=== PATIENT | male | born 1950 | race African-American/Black ===

== ENCOUNTER 2019-11-26 21:08 | Inpatient (IN) | payer OTHER ==
[~2019-11-26] VITALS: Ht 180.3 cm; Wt 91.6 kg
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
[2019-11-26] MEDS ORDERED: NORVASC 2.5 MG2.5 M1 PO (21:23)
[2019-11-26] MEDS ORDERED: ASA81BEC PO (21:23)
[2019-11-26] MEDS ORDERED: HYDROCHLOROTHIA25 M2 PO (21:24)
[2019-11-26] MEDS ORDERED: COZAAR 25 MG TA25 M1 PO (21:24)
[2019-11-26 21:54] LABS: HEMATOCRIT 41.6 % (42.0-52.0); RDW 13.9 % (10.5-14.5); WBC 9.6 thou/uL (4.0-11.0)
[2019-11-26 21:55] LABS: ABSOLUTE NEUTROPHILS 5.2 thou/uL (1.4-8.2); BASOPHILS 0.7 % (0.0-2.0); EOSINOPHILS 1.2 % (0.0-3.0); HEMOGLOBIN 13.8 gm/dL (14.0-18.0); LYMPHOCYTES 32.2 % (24.0-44.0); MCHC 33.2 g/dL (28.0-37.0); MCV 84.3 fL (80.0-100.0); MONOCYTES 11.7 % (1.0-8.0); PLATELET COUNT 241 thou/uL (150-400); POLYS 54.2 % (36.0-66.0); RBC 4.93 mil/uL (4.50-6.00)
[2019-11-26 22:00] LABS: URINE BILIRUBIN NEGATIVE (Negative); URINE BLOOD NEGATIVE (Negative); URINE CLARITY CLEAR; URINE COLOR YELLOW; URINE GLUCOSE-RANDOM* NEGATIVE (Negative); URINE KETONES NEGATIVE (Negative); URINE LEUKOCYTES-REFLEX NEGATIVE (Negative); URINE NITRITE-REFLEX NEGATIVE (Negative); URINE PROTEIN (DIPSTICK) NEGATIVE (Negative); URINE SPECIFIC GRAVITY 1.015 (1.005-1.035); URINE UROBILINOGEN 0.2 E.U./dl (0.2-1.0)
[2019-11-26 22:01] LABS: CALCIUM 8.9 mg/dL (8.5-10.1); CREATININE 1.3 mg/dL (0.7-1.3); POTASSIUM 3.6 mmol/L (3.5-5.1)
[2019-11-26 22:10] LABS: APTT 27.1 Seconds (24.5-32.8); PROTIME 10.3 Seconds (9.3-11.4)
[2019-11-26 22:55] LABS: AMP/METHAMP Negative (Negative); BARBITURATES Negative (Negative); BENZODIAZEPINES Negative (Negative); COCAINE Negative (Negative); METHADONE Negative (Negative); OPIATES Negative (Negative); PCP Negative (Negative)
[2019-11-26 23:43] LABS: CHOLESTEROL 204 mg/dL (<200); HDL CHOLESTEROL 41 mg/dL (>40); LDL CHOLESTEROL 136 mg/dL (<100); TRIGLYCERIDE 138 mg/dL (<150); VLDL 28 mg/dL (<40)
[2019-11-26 23:44] LABS: SERUM ASSESSMENT Clear
[2019-11-26 23:53] VITALS: BP 136/64
[2019-11-27 00:58] VITALS: BP 158/93
[2019-11-27 05:08] VITALS: BP 126/77
[2019-11-27 05:45] LABS: HEMATOCRIT 40.4 % (42.0-52.0); HEMOGLOBIN 13.3 gm/dL (14.0-18.0); MCH 27.8 pg (26.0-34.0); MCHC 32.9 g/dL (28.0-37.0); MCV 84.6 fL (80.0-100.0); RBC 4.78 mil/uL (4.50-6.00); RDW 14.1 % (10.5-14.5); WBC 8.4 thou/uL (4.0-11.0)
[2019-11-27 06:09] LABS: CALCIUM 8.5 mg/dL (8.5-10.1); CREATININE 1.4 mg/dL (0.7-1.3); MAGNESIUM 2.1 mg/dL (1.8-2.4); POTASSIUM 3.5 mmol/L (3.5-5.1)
[2019-11-27 07:45] VITALS: BP 144/85
[2019-11-27 11:55] VITALS: BP 136/74
[2019-11-27 16:00] VITALS: BP 137/83
[2019-11-27 19:30] VITALS: BP 153/96
[2019-11-28] VITALS (7 sets, daily range): BP systolic 146–155; BP diastolic 78–102
[2019-11-28 05:52] LABS: GLYCOHEMOGLOBIN (HGB A1C) 6.1 % (4.8-5.6)
[2019-11-29] VITALS (7 sets, daily range): BP systolic 143–163; BP diastolic 84–99
--- NOTE | 2019-11-29 07:59 | EKG ---
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[facility] : 1950 Requested By: Hannah Alvarenga Order Number: [id number] MD: Toro Montoya Measurements Intervals Locust Rate: 81 P: 51 KS: 161 QRS: 14 QRSD: 78 T: 11 QT: 382 QTc: 444 Interpretive Statements Sinus rhythm Nonspecific ST and T wave abnormality Small inferior Q waves No previous ECG available for comparison Electronically Signed On 11-29-2019 7:58:47 CDT by Toro Montoya [email or web address] <ELECTRONICALLY SIGNED> By: Toro Montoya MD, FACC 11/29/19 0758 [id number] 2149 Toro Montoya MD, [facility] /EPI
--- NOTE | 2019-11-29 11:52 | 2DMMODE ---
[facility] [address] [place] [address] 2 D/M-MODE ECHOCARDIOGRAM Name: MARAH ESCOBAR Room #: 205-P ADM IN M.R.#: [id number] Admission: 11/26/19 Attend Phys: Lola Santoyo Discharge: Date of : 48 Report #: [id number] THIS REPORT FOR: cc: FAM - No family physician/PCP FAM - No family physician/PCP Dino Elizondo MD ~ APPROVED REPORT Study performed: 11/29/2019 09:20:08 EXAM: Comprehensive 2D, Doppler, and color-flow Echocardiogram Patient Location: Bedside Room #: 205 Status: routine BSA: 2.11 HR: 70 bpm BP: 145/90 mmHg Rhythm: NSR Other Information Study Quality: Good Indications CVA/TIA Hypertension/HDD Echo Enhancing Agent Indication: Rule out Shunt Agent(s) / Amount(s) Used: Agitated Saline 7 cc 2D Dimensions RVDd: 33.98 mm IVSd: 11.66 (7-11mm) LVOT Diam: 22.39 (18-24mm) LVDd: 39.66 mm PWd: 11.59 (7-11mm) Ascending Ao: 32.05 (22-36mm) LVDs: 23.36 (25-40mm) Aortic Root: 31.76 mm IVC: 14.00 mm Volumes Left Atrial Volume (Systole) Single Plane 4CH: 18.26 mL Single Plane 2CH: 26.29 mL LA ESV Index: 12.00 mL/m2 Aortic Valve [facility] [address] [place] [address] 2 D/M-MODE ECHOCARDIOGRAM Name: MARAH ESCOBAR Room #: 205-[facility] IN .R.#: [id number] Admission: 11/26/19 Attend Phys: Lola Sandoval May Discharge: Date of : 48 Report #: [id number] AoV Peak Nader.: 1.25 m/s AO Peak Gr.: 6.20 mmHg LVOT Max P.72 mmHg LVOT Max V: 1.20 m/s NEIL Vmax: 3.78 cm2 Mitral Valve E/A Ratio: 0.5 MV Decel. Time: 402.07 ms MV E Max Nader.: 0.49 m/s MV A Nader.: 0.91 m/s MV PHT: 116.60 ms IVRT: 170.70 ms Pulmonary Valve PV Peak Nader.: 0.74 m/s PV Peak Gr.: 2.19 mmHg Pulmonary Vein P Vein S: 0.54 m/s P Vein A: 0.41 m/s P Vein D: 0.23 m/s P Vein A Dur.: 115.3 msec P Vein S/D Ratio: 2.35 Tricuspid Valve TR Peak Nader.: 2.50 m/s TR Peak Gr.: 25.02 mmHg PA Pressure: 30.00 mmHg Left Ventricle The left ventricle is normal size. There is normal LV segmental wall motion. Mild concentric left ventricular hypertrophy. The left ventricular systolic function is normal. The left ventricular ejection fraction is within the normal range. LVEF is 60-65%. Grade I - abnormal relaxation pattern. Right Ventricle The right ventricle is normal size. The right ventricular systolic function is normal. Atria The left atrium size is normal. Atrial septal aneurysm is present with PFO. The right atrium size is normal. Aortic Valve The aortic valve is normal in structure. No aortic regurgitation is present. There is no aortic valvular stenosis. Mitral Valve [facility] [address] [employer] [place] [address] 2 D/M-MODE ECHOCARDIOGRAM Name: MARAH ESCOBAR Room #: 205-P ADM IN M.R.#: [id number] Admission: 11/26/19 Attend Phys: Lola Moore Discharge: Date of : 48 Report #: [id number] The mitral valve is normal in structure. Trace mitral regurgitation. No evidence of mitral valve stenosis. Tricuspid Valve The tricuspid valve is normal in structure. There is mild tricuspid regurgitation. Estimated PAP 30 mmHg. There is no pulmonary hypertension. Pulmonic Valve The pulmonary valve is normal in structure. There is no pulmonic valvular regurgitation. Great Vessels The aortic root is normal in size. IVC is normal in size and collapses >50% with inspiration. Pericardium There is no pericardial effusion. <Conclusion> The left ventricle is normal size. LVEF is 60-65%. The aortic valve is normal in structure. No aortic regurgitation is present. The mitral valve is normal in structure. Trace mitral regurgitation. The tricuspid valve is normal in structure. There is mild tricuspid regurgitation. Estimated PAP 30 mmHg. There is no pulmonary hypertension. The pulmonary valve is normal in structure. There is no pericardial effusion. Atrial septal aneurysm is present with PFO. <ELECTRONICALLY SIGNED> By: Dino Elizondo MD 11/29/19 1152 1152 1152 Dino Elizondo MD /INF
[2019-11-30 03:40] VITALS: BP 145/83
[2019-11-30 07:40] VITALS: BP 146/95
[2019-11-30] MEDS ORDERED: LIPITOR40 MG PO (08:09)
[2019-11-30] MEDS ORDERED: CLOPIDOGREL75 MG PO (08:09)
[2019-11-30 09:48] VITALS: BP 145/83
[2019-11-30 10:56] VITALS: BP 145/83
[2019-11-30 11:02] VITALS: BP 145/83
== END 2019-11-30 13:10 | disposition home health service (06) | DRG 65 ==
LOC: ER 21:08 → EROBS 23:24 → 2N 23:24
PROVIDERS: Emergency Medicine; Nurse Practitioner Family; ADMIT Hospitalist; ATTEND Hospitalist
DX: I63.9 Cerebral infarction, unspecified (principal); I69.351 Hemiplegia and hemiparesis following cerebral infarction affecting right dominant side; N17.9 Acute kidney failure, unspecified; F17.200 Nicotine dependence, unspecified, uncomplicated; R47.1 Dysarthria and anarthria; I10 Essential (primary) hypertension; R47.81 Slurred speech; R13.10 Dysphagia, unspecified; E78.5 Hyperlipidemia, unspecified; Z79.899 Other long term (current) drug therapy; Z79.82 Long term (current) use of aspirin; Z91.013 Allergy to seafood; Z98.49 Cataract extraction status, unspecified eye
CPT/HCPCS: 10081